=== PATIENT | female | born 1970 | race Hispanic/Latino ===

== ENCOUNTER 2017-09-23 14:09 | Outpatient (CLI) | payer OTHER | END 2017-09-23 14:10 | disposition home or self-care (01) | LOC: BICMAMMO 14:09 | PROVIDERS: ATTEND Family Medicine | DX: Z12.31 Encounter for screening mammogram for malignant neoplasm of breast (principal) | CPT/HCPCS: 77063; 77067 ==

== ENCOUNTER 2018-09-24 13:17 | Outpatient (CLI) | payer OTHER ==
--- NOTE | 2018-09-24 13:58 | BD ---
DEXA SCAN: DATE: 09/24/2018. PROVIDED CLINICAL HISTORY: Osteoporosis. FINDINGS: Lumbar Spine: BMD (g/cm2) L1 0.995 T-Score: 0 L2 1.128 T-Score: 0.9 L3 1.135 T-Score: 0.5 L4 1.168 T-Score: 1.0 L1-L4 1.108 T-Score: 0.6 Femoral Neck: 0.939 T-Score: 0.8 Total Femur: 1.248 T-Score: 2.5 Impression: Calculated bone mineral density meets WHO criteria for normal. POS: [facility]
== END 2018-09-24 13:18 | disposition home or self-care (01) ==
LOC: BICMAMMO 13:17
PROVIDERS: ATTEND Family Medicine
DX: Z13.820 Encounter for screening for osteoporosis (principal)
CPT/HCPCS: 77080

== ENCOUNTER 2019-10-20 14:40 | Outpatient (CLI) | payer OTHER ==
--- NOTE | 2019-10-20 15:08 | MMO ---
Bilateral MAMMO Bilat Screen [facility]. CLINICAL HISTORY: Patient is 49 years old and is seen for screening. The patient has no family history of breast cancer. The patient has no personal history of cancer. VIEWS: The views performed were: bilateral craniocaudal with tomosynthesis and bilateral mediolateral oblique with tomosynthesis. FILMS COMPARED: The present examination has been compared to prior imaging studies performed at [facility] on 09/29/2014, 10/04/2015, 09/20/2016 and 09/23/2017. This study has been interpreted with the assistance of computer-aided detection. MAMMOGRAM FINDINGS: There are scattered fibroglandular densities. There are no suspicious masses, suspicious calcifications, or new areas of architectural distortion. IMPRESSION: THERE IS NO MAMMOGRAPHIC EVIDENCE OF MALIGNANCY. A ROUTINE FOLLOW-UP MAMMOGRAM IN 1 YEAR IS RECOMMENDED. THE RESULTS OF THIS EXAM WERE SENT TO THE PATIENT. ACR BI-RADS Category 1 - Negative MAMMOGRAPHY NOTE: 1. A negative mammogram report should not delay a biopsy if a dominant of clinically suspicious mass is present. 2. Approximately 10% to 15% of breast cancers are not detected by mammography. 3. Adenosis and dense breasts may obscure an underlying neoplasm. Reported by: CHERISE VEGA MD Electonically Signed: [id number]
== END 2019-10-20 14:41 | disposition home or self-care (01) ==
LOC: BICMAMMO 14:40
PROVIDERS: ATTEND Nurse Practitioner Family
DX: Z12.31 Encounter for screening mammogram for malignant neoplasm of breast (principal)
CPT/HCPCS: 77063; 77067

== ENCOUNTER 2021-11-13 09:48 | Inpatient (IN) | payer OTHER ==
[2021-11-13] MEDS ORDERED: Ondansetron PF 4 MG/2 ML Vial ONE ×2 (10:14→17:19)
[2021-11-13] MEDS ORDERED: Ketamine 50 MG/ML (10ML VIAL) ONE (10:14)
[2021-11-13 11:26] LABS: #Lymphocytes 0.6 thou/uL (1.20-3.40); #Monocytes 0.5 thou/uL (0.11-0.59); #Neutrophils 4.4 thou/uL (1.40-6.50); %Basophils 0.6 % (0.0-1.0); %Eosinophils 0.3 % (0.0-10.0); %Lymphocytes 10.9 % (21.0-51.0); %Monocytes 9.3 % (0.0-10.0); Hemoglobin 11.7 g/dL (12.0-16.0); Mean Corpuscular HGB CONC 32.6 g/dL (32.0-36.0); Mean Corpuscular Hemoglobin 32.4 pg (27.0-31.0); Mean Corpuscular Volume 99.3 fL (78.0-98.0); Mean Platelet Volume 7.6 fL (7.4-10.4); Platelet Count 207 thou/uL (130-400); RBC Distribution Width 11.5 % (11.5-14.5); Red Blood Cell (RBC) Count 3.62 mill/uL (4.20-5.40); White Blood Cell (WBC) Count 5.5 thou/uL (4.8-10.8)
[2021-11-13 11:34] LABS: BHCG - Serum Negative (NEGATIVE); Pregs Control Background? CLEAR/WHITE (CLR/WHITE); Pregs Control Bar Appear? YES (CONTROL BAR)
[2021-11-13 11:37] LABS: PTT 28.4 sec (22.9-36.1); Prothrombin Time 13.7 sec (12.0-14.7)
[2021-11-13] MEDS ORDERED: hydrALAZINE 20 MG/ML VIAL SLOW IVP PRN (11:41)
[2021-11-13] MEDS ORDERED: Morphine 2 MG/ML VIAL SLOW IVP PRN (11:41)
[2021-11-13] MEDS ORDERED: Ondansetron PF 4 MG/2 ML Vial IVP PRN (11:41)
[2021-11-13] MEDS ORDERED: Dextrose 5% in Water 1,000 ML IV PRN (11:41)
[2021-11-13] MEDS ORDERED: Promethazine HCl 25 MG/ML VIAL IM PRN (11:41)
[2021-11-13] MEDS ORDERED: Dextrose 50% Abboject 50 ML SYRINGE SLOW IVP PRN (11:41)
[2021-11-13] MEDS ORDERED: Cyclobenzaprine 10 MG TAB PO PRN (11:44)
[2021-11-13] MEDS ORDERED: traMADol HCl 50 MG TAB PO PRN (11:44)
[2021-11-13 11:50] LABS: ALT (SGPT) 31 U/L (8-55); AST (SGOT) 35 U/L (5-34); Albumin 3.3 g/dL (3.5-5.0); Alkaline Phosphatase 55 U/L (40-110); Anion Gap 12 mmol/L (10-20); BUN (Urea Nitrogen) 10 mg/dL (9.8-20.1); Bilirubin, Total Less than 0.2 mg/dL (0.2-1.2); Calc. Creatinine Clearance 0 mL/min (70-130); Calcium 8.2 mg/dL (7.8-10.44); Carbon Dioxide 24 mmol/L (22-29); Chloride 105 mmol/L (98-107); Estimated GFR 106; Globulin 2.7 g/dL (2.4-3.5); Glucose 128 mg/dL (70-105); Potassium 3.7 mmol/L (3.5-5.1); Sodium 137 mmol/L (136-145)
[2021-11-13 13:41] LABS: SARS-CoV-2 NAA Rapid Test DETECTED (NotDetected)
[2021-11-13] MEDS ORDERED: CEFAZOLIN 2 GM in Sodium Chloride 0.9% 100 ML IVPB SCH (15:00)
[2021-11-13] MEDS ORDERED: fentaNYL Citrate/PF 100 MCG/2 ML SYRINGE ONE ×2 (17:00→18:52)
[2021-11-13] MEDS ORDERED: Midazolam HCl 2 mg/2 ml Vial ONE (17:00)
[2021-11-13] MEDS ORDERED: PROPOFOL 200 MG/20 ML VIAL ONE (17:19)
[2021-11-13] MEDS ORDERED: Ketorolac Tromethamine 30 MG/ML VIAL ONE (17:19)
[2021-11-13] MEDS ORDERED: Dexamethasone 20 MG/5 ML VIAL ONE (17:19)
[2021-11-13] MEDS ORDERED: Lidocaine 1% PF 5 ML VIAL ONE (17:19)
[2021-11-13] MEDS ORDERED: ePHEDrine 50 MG/ML VIAL ONE (17:19)
[2021-11-13] MEDS ORDERED: Fentanyl 100 MCG/2 ML VIAL ONE (20:38)
[2021-11-13] MEDS: traMADol HCl 50 MG TAB PO SCH ×2 (22:09→23:52)
[2021-11-13] MEDS: Sodium Chloride 0.9% 1,000 ML IV SCH ×2 (22:09→22:37)
[2021-11-13] MEDS: Senokot S 8.6-50 MG TAB PO SCH (22:10)
[2021-11-13] MEDS: Famotidine 20 MG TAB PO SCH (22:10)
[2021-11-13] MEDS: CEFAZOLIN 2 GM in Sodium Chloride 0.9% 100 ML IVPB SCH (22:36)
[2021-11-13] MEDS: Ibuprofen 200 MG TAB PO SCH (22:36)
[2021-11-13 22:49] VITALS: BMI 27.4
[2021-11-13] MEDS: Acetaminophen 500 MG TAB PO SCH (23:52)
[2021-11-14] MEDS: Sodium Chloride 0.9% 1,000 ML IV SCH ×2 (04:20→13:54)
[2021-11-14 05:23] LABS: #Lymphocytes 0.7 thou/uL (1.20-3.40); #Monocytes 0.3 thou/uL (0.11-0.59); #Neutrophils 3.7 thou/uL (1.40-6.50); %Basophils 0.2 % (0.0-1.0); %Lymphocytes 14.3 % (21.0-51.0); %Monocytes 5.6 % (0.0-10.0); %Neutrophils 79.9 % (42.0-75.0); Hemoglobin 12.1 g/dL (12.0-16.0); Mean Corpuscular HGB CONC 32.9 g/dL (32.0-36.0); Mean Corpuscular Hemoglobin 32.2 pg (27.0-31.0); Mean Platelet Volume 7.4 fL (7.4-10.4); Platelet Count 217 thou/uL (130-400); RBC Distribution Width 11.5 % (11.5-14.5); Red Blood Cell (RBC) Count 3.77 mill/uL (4.20-5.40); White Blood Cell (WBC) Count 4.7 thou/uL (4.8-10.8)
[2021-11-14 05:38] LABS: Phosphorus 4.6 mg/dL (2.3-4.7)
[2021-11-14 05:40] LABS: Anion Gap 15 mmol/L (10-20); BUN (Urea Nitrogen) 10 mg/dL (9.8-20.1); Calc. Creatinine Clearance 109 mL/min (70-130); Calcium 8.8 mg/dL (7.8-10.44); Carbon Dioxide 23 mmol/L (22-29); Chloride 104 mmol/L (98-107); Estimated GFR 106; Glucose 135 mg/dL (70-105); Magnesium 1.9 mg/dL (1.6-2.6); Sodium 138 mmol/L (136-145)
[2021-11-14] MEDS: traMADol HCl 50 MG TAB PO SCH ×2 (06:00→12:02)
[2021-11-14] MEDS: Acetaminophen 500 MG TAB PO SCH ×2 (06:01→12:02)
[2021-11-14] MEDS: CEFAZOLIN 2 GM in Sodium Chloride 0.9% 100 ML IVPB SCH ×2 (06:01→14:29)
[2021-11-14] MEDS: Ibuprofen 200 MG TAB PO SCH ×2 (06:01→14:27)
[2021-11-14] MEDS: Famotidine 20 MG TAB PO SCH (08:00)
[2021-11-14] MEDS: Senokot S 8.6-50 MG TAB PO SCH (08:01)
[2021-11-14 08:08] VITALS: BP 129/70; TEMP 97.7
[2021-11-14] MEDS ORDERED: Multivitamin W/ Minerals 1 TAB PO SCH (09:00)
[2021-11-14] MEDS ORDERED: Enoxaparin Sodium 40 MG/0.4 ML SYRINGE SC SCH (09:00)
[2021-11-14] MEDS ORDERED: Polyethylene Glycol 3350 17 GM Packet PO SCH (09:00)
== END 2021-11-14 16:00 | disposition home or self-care (01) | DRG 492 ==
LOC: ERS 09:48 → ERHOLD 11:08 → SJJU 22:29
PROVIDERS: ADMIT Surgery; ATTEND Surgery
PROC: 0QSH04Z Reposition Left Tibia with Internal Fixation Device, Open Approach (ICD-10-PCS; principal; 2021-11-13)
PROC: 0QSK04Z Reposition Left Fibula with Internal Fixation Device, Open Approach (ICD-10-PCS; 2021-11-13)
DX: S82.852A Displaced trimalleolar fracture of left lower leg, initial encounter for closed fracture (principal); U07.1 COVID-19; W11.XXXA Fall on and from ladder, initial encounter
CPT/HCPCS: 27840; 36415; 71045; 76000; 80048; 80053; 83735; 84100; 84703; 85025; 85610; 85730; 93005; 96374; 99152; C1713; G0390; J0690; J1100; J1650; J1885; J2250; J2405; J2704; J3010; J3490; J7050; U0002

== ENCOUNTER 2022-01-24 13:21 | Outpatient (CLI) | payer OTHER | END 2022-01-24 13:22 | disposition home or self-care (01) | LOC: BICMAMMO 13:21 | PROVIDERS: ATTEND Nurse Practitioner Family | DX: Z12.31 Encounter for screening mammogram for malignant neoplasm of breast (principal) | CPT/HCPCS: 77063; 77067 ==

== ENCOUNTER 2022-05-30 10:32 | Day surgery (SDC) | payer OTHER ==
[2022-05-29 08:17] VITALS: BMI 28.5
[2022-05-30] MEDS ORDERED: Bupivacaine PF 0.5% 30 ML VIAL ONE (11:52)
[2022-05-30] MEDS ORDERED: fentaNYL PF 100 MCG/2 ML SYRINGE ONE (12:12)
[2022-05-30] MEDS ORDERED: CEFAZOLIN 2 GM VIAL ONE (12:24)
[2022-05-30] MEDS ORDERED: Sodium Chloride 0.9% 100 ML ONE (12:24)
[2022-05-30] MEDS ORDERED: Ondansetron PF 4 MG/2 ML Vial ONE (12:49)
[2022-05-30] MEDS ORDERED: ePHEDrine 50 MG/ML VIAL ONE (12:49)
[2022-05-30] MEDS ORDERED: Lidocaine 1% PF 5 ML VIAL ONE (12:49)
[2022-05-30] MEDS ORDERED: Ketorolac Tromethamine 30 MG/ML VIAL ONE (12:49)
[2022-05-30] MEDS ORDERED: PROPOFOL 200 MG/20 ML VIAL ONE (12:49)
[2022-05-30] MEDS ORDERED: Fentanyl 100 MCG/2 ML VIAL ONE (14:15)
[2022-05-30] MEDS ORDERED: HYDROcodone/Acetaminophen 5/325 mg Tablet ONE (15:08)
== END 2022-05-30 16:00 | disposition home or self-care (01) ==
LOC: SDC 10:32
PROVIDERS: ATTEND Orthopaedic Surgery
PROC: 0SPG04Z Removal of Internal Fixation Device from Left Ankle Joint, Open Approach (ICD-10-PCS; principal; 2022-05-30)
DX: T84.84XA Pain due to internal orthopedic prosthetic devices, implants and grafts, initial encounter (principal); Y79.3 Surgical instruments, materials and orthopedic devices (including sutures) associated with adverse incidents
CPT/HCPCS: J1885; J2405; J2704; J3010; J3490; S0020

== ENCOUNTER 2023-03-05 12:54 | Outpatient (CLI) | payer OTHER | END 2023-03-05 12:55 | disposition home or self-care (01) | LOC: BICMAMMO 12:54 | PROVIDERS: ATTEND Nurse Practitioner Family | DX: Z12.31 Encounter for screening mammogram for malignant neoplasm of breast (principal) | CPT/HCPCS: 77063; 77067 ==

== ENCOUNTER 2025-04-27 14:44 | Outpatient (CLI) | payer OTHER | END 2025-04-27 14:45 | disposition home or self-care (01) | LOC: BICMAMMO 14:44 | PROVIDERS: ATTEND Student in an Organized Health Care Education/Training Program | DX: Z12.31 Encounter for screening mammogram for malignant neoplasm of breast (principal) | CPT/HCPCS: 77063; 77067 ==